=== PATIENT | male | born 1990 | race Caucasian/White ===

== ENCOUNTER 2017-07-29 09:01 | Emergency (ER) | payer SELFPAY ==
[~2017-07-29] VITALS: Ht 165.1 cm; Wt 82.5 kg
[2017-07-29 09:06] VITALS: Ht 165.1 cm; Wt 82.5 kg
[2017-07-29 10:12] VITALS: BP 117/65
== END 2017-07-29 10:12 | disposition home or self-care (01) ==
LOC: ED 09:01
DX: S01.01XA Laceration without foreign body of scalp, initial encounter (principal); S01.81XA Laceration without foreign body of other part of head, initial encounter; W22.8XXA Striking against or struck by other objects, initial encounter; Y93.89 Activity, other specified; Y92.89 Other specified places as the place of occurrence of the external cause; Y99.8 Other external cause status